=== PATIENT | female | born 1945 | race Two or more races ===

== ENCOUNTER 2022-09-07 07:12 | Outpatient (CLI) | payer OTHER | END 2022-09-07 07:15 | disposition home or self-care (01) | LOC: NUCLEAR 07:12 | PROVIDERS: ATTEND Specialist | DX: I11.9 Hypertensive heart disease without heart failure (principal); E78.5 Hyperlipidemia, unspecified; E11.9 Type 2 diabetes mellitus without complications; I25.9 Chronic ischemic heart disease, unspecified | CPT/HCPCS: 78452; 93017; A9500; J0153 ==